=== PATIENT | female | born 1955 | race Caucasian/White ===

== ENCOUNTER 2021-12-10 07:26 | Outpatient (RCR) | payer MEDICARE, OTHER, SELFPAY | END 2022-09-19 23:59 | disposition home or self-care (01) | PROVIDERS: PCP Family Medicine; Visit Provider Family Medicine | DX: M25.562 Pain in left knee (principal); G89.29 Other chronic pain; Z51.89 Encounter for other specified aftercare | CPT/HCPCS: 97162 ==